=== PATIENT | male | born 1930 | race Caucasian/White ===

== ENCOUNTER → 2016-10-27 09:44 | Emergency (ER) | payer MEDICARE, BC ==
[~2016-10-27 09:44] MED LIST: Aspirin Low Dose CHEW TAB* 81 MG PO ONE; EPINEPHrine AMP 1 MG/ML ONE; EPINEPHrine SYR 0.1 MG/ML* (1:10,000) SYRINGE ONE; NS 0.9% 1000 ML* 1,000 ML IV ONE
[2016-10-27 10:01] VITALS: BP 0/0
[2016-10-27 10:27] LABS: Hematocrit 47 % (42-52); Hemoglobin 14.3 g/dl (14.0-18.0); Mean Corpuscular HGB Conc 31 g/dl (31-36); Mean Corpuscular Hemoglobin 32 pg (27-31); Mean Corpuscular Volume 104 fL (80-94); Mean Platelet Volume 8 um3 (7.4-10.4); Red Blood Count 4.52 10^6/ul (4.0-5.4); Red Cell Distribution Width 15 % (10.5-15); White Blood Count 14.2 10^3/ul (3.5-10.8)
[2016-10-27 10:36] LABS: Add Diff/Slide Review? Slide Review Added; Comments Flag Yes
[2016-10-27 10:39] LABS: Albumin 3.6 g/dL (3.2-5.2); BUN/Creatinine Ratio 9.3 (8-20); Calcium 8.7 mg/dL (8.6-10.3); EGFR African American 48.8 (>60); Globulin 2.9 g/dL (2-4); Magnesium 2.6 mg/dL (1.9-2.7); Total Bilirubin 0.5 mg/dL (0.2-1.0); Total Protein 6.5 g/dL (6.4-8.9)
[2016-10-27 10:53] LABS: Troponin I 0.1 ng/mL (<0.04)
[2016-10-27 10:55] LABS: Macrocytosis 1+
[2016-10-27 11:50] LABS: T4 5.34 mcg/mL (6.09-12.23)
[2016-10-27 11:51] LABS: TSH (Thyroid Stimulating Horm) 8.8 mcIU/mL (0.34-5.60)
--- NOTE | 2016-10-27 16:04 | ED ---
Leobardo Tang Billy, scribed for Johnathan Bonilla MD on 10/27/16 at 1027 . Cardiac Resuscitation - HPI Summary HPI Summary: This patient is a 86 year-old male BIBA to [facility] for evaluation of shortness of breath and general weakness. He was disoriented, pale, and diaphoretic by the time EMS arrived on scene. They state that his heart rate was initially in the 50s en route. However, he then suddenly became unresponsive, apnic, and asystolic on the way here. CPR was started by EMS. 1x EpiPen given to the patient at 0942 by EMS prior to arrival. - History of Current Complaint Chief Complaint: EDCardiacArrest Stated Complaint: ABC ALERT Time Seen by Provider: 10/27/16 09:44 Hx Obtained From: EMS Hx From Patient Unobtainable Due To: Extremis Onset/Duration: Minutes/Hours: Arrest Witnessed: Yes - Past Medical History Past Medical History: Other: - Per medical records, the patient has a history of dementia, hearing loss, hepatitis, high cholesterol, cataract extraction to the right eye 10/29/07, macular pucker. - Family History Family History: Other: - Per medical records: mother at age 97 heart failure, father age 77 heart failure. - Social History Social History: Unobtainable Due to Extremis - Review of Systems Review of Systems: Unobtainable Due to Extremis Physical Examination - Physical Examination Completion Of Physical Exam Limited Due To: Extremis Physical Exam Additional Comments: The patient was unresponsive, being bagged. The patient is pulseless on examination. Dry oral mucosa. Pupils non-reactive to light. Lung sounds were present only when being bagged. The head is normocephalic without any signs of trauma. Abdomen is soft with no bowel sounds. Extremities show no edema. The patient was unresponsive, GCS = 3. Diagnostics - Vital Signs Vital Signs Temp Pulse Resp BP Pulse Ox 10/27/16 09:58 97 F 0 0 0/0 0 - Laboratory Lab Results: Lab Results 10/27/16 10/27/16 10/27/16 Range/Units 10:00 10:00 10:00 WBC 14.2 H (3.5-10.8) 10^3/ul RBC 4.52 (4.0-5.4) 10^6/ul Hgb 14.3 (14.0-18.0) g/dl Hct 47 (42-52) % MCV 104 H (80-94) fL MCH 32 H (27-31) pg MCHC 31 (31-36) g/dl RDW 15 (10.5-15) % Plt Count 138 L (150-450) 10^3/ul MPV 8 (7.4-10.4) um3 Neut % (Auto) 50.4 (38-83) % Lymph % (Auto) 37.1 (25-47) % Dewitt % (Auto) 10.3 H (1-9) % Eos % (Auto) 1.7 (0-6) % Baso % (Auto) 0.5 (0-2) % Absolute Neuts (auto) 7.1 (1.5-7.7) 10^3/ul Absolute Lymphs (auto) 5.3 H (1.0-4.8) 10^3/ul Absolute Monos (auto) 1.5 H (0-0.8) 10^3/ul Absolute Eos (auto) 0.2 (0-0.6) 10^3/ul Absolute Basos (auto) 0.1 (0-0.2) 10^3/ul Absolute Nucleated RBC 0.06 10^3/ul Nucleated RBC % 0.5 Normal RBC Morphology Not Reportable Macrocytosis 1+ INR (Anticoag Therapy) 1.03 (0.89-1.11) Sodium 139 (133-145) mmol/L Potassium 4.0 (3.5-5.0) mmol/L Chloride 104 (101-111) mmol/L Carbon Dioxide 15 L (22-32) mmol/L Anion Gap 20 H (2-11) mmol/L BUN 16 (6-24) mg/dL Creatinine 1.72 H (0.67-1.17) mg/dL Est GFR ( Amer) 48.8 (>60) Est GFR (Non-Af Amer) 38.0 (>60) BUN/Creatinine Ratio 9.3 (8-20) Glucose 478 H (70-100) mg/dL Lactic Acid (0.5-2.0) mmol/L Calcium 8.7 (8.6-10.3) mg/dL Magnesium 2.6 (1.9-2.7) mg/dL Total Bilirubin 0.50 (0.2-1.0) mg/dL AST 49 H (13-39) U/L ALT 36 (7-52) U/L Alkaline Phosphatase 104 (34-104) U/L Total Creatine Kinase 76 (10-223) U/L CK-MB (CK-2) 2.7 (0.6-6.3) ng/mL Troponin I 0.10 H* (<0.04) ng/mL B-Natriuretic Peptide ( - 100) pg/mL Total Protein 6.5 (6.4-8.9) g/dL Albumin 3.6 (3.2-5.2) g/dL Globulin 2.9 (2-4) g/dL Albumin/Globulin Ratio 1.2 (1-3) TSH 8.80 H (0.34-5.60) mcIU/mL Thyroxine (T4) 5.34 L (6.09-12.23) mcg/mL 10/27/16 10/27/16 Range/Units 10:00 10:00 WBC (3.5-10.8) 10^3/ul RBC (4.0-5.4) 10^6/ul Hgb (14.0-18.0) g/dl Hct (42-52) % MCV (80-94) fL MCH (27-31) pg MCHC (31-36) g/dl RDW (10.5-15) % Plt Count (150-450) 10^3/ul MPV (7.4-10.4) um3 Neut % (Auto) (38-83) % Lymph % (Auto) (25-47) % Dewitt % (Auto) (1-9) % Eos % (Auto) (0-6) % Baso % (Auto) (0-2) % Absolute Neuts (auto) (1.5-7.7) 10^3/ul Absolute Lymphs (auto) (1.0-4.8) 10^3/ul Absolute Monos (auto) (0-0.8) 10^3/ul Absolute Eos (auto) (0-0.6) 10^3/ul Absolute Basos (auto) (0-0.2) 10^3/ul Absolute Nucleated RBC 10^3/ul Nucleated RBC % Normal RBC Morphology Macrocytosis INR (Anticoag Therapy) (0.89-1.11) Sodium (133-145) mmol/L Potassium (3.5-5.0) mmol/L Chloride (101-111) mmol/L Carbon Dioxide (22-32) mmol/L Anion Gap (2-11) mmol/L BUN (6-24) mg/dL Creatinine (0.67-1.17) mg/dL Est GFR ( Amer) (>60) Est GFR (Non-Af Amer) (>60) BUN/Creatinine Ratio (8-20) Glucose (70-100) mg/dL Lactic Acid 12.9 H* (0.5-2.0) mmol/L Calcium (8.6-10.3) mg/dL Magnesium (1.9-2.7) mg/dL Total Bilirubin (0.2-1.0) mg/dL AST (13-39) U/L ALT (7-52) U/L Alkaline Phosphatase (34-104) U/L Total Creatine Kinase (10-223) U/L CK-MB (CK-2) (0.6-6.3) ng/mL Troponin I (<0.04) ng/mL B-Natriuretic Peptide 253 H ( - 100) pg/mL Total Protein (6.4-8.9) g/dL Albumin (3.2-5.2) g/dL Globulin (2-4) g/dL Albumin/Globulin Ratio (1-3) TSH (0.34-5.60) mcIU/mL Thyroxine (T4) (6.09-12.23) mcg/mL Result Diagrams: 10/27/16 10:00 10/27/16 10:00 Lab Statement: Any lab studies that have been ordered have been reviewed, and results considered in the medical decision making process. - EKG 0955 EKG Interpretation: sinus tachycardia 113 bpm, ST elevation in II V2 V3 EKG Comparison: Other - Significant changes compared to 05/22/11 Cardiac Resus. Course/Dx - Course Course Of Treatment: Endotracheal Intubation Procedure Note. Procedure - Endotracheal Intubation. Permit was implied secondary to emergent situation. An LMA and bougie were placed within arm's reach. A Glidescope was inserted into the oropharynx at which time the vocal cords were visualized. A 7.5 [place]alan endotracheal tube was inserted and visualized going through the vocal cords. The stylette was removed. Colorimetric change was visualized on the CO2 meter. Breath sounds were heard in both lung miller equally. The endotracheal tube was placed at 23 cm, measured at the teeth. Portable chest x-ray ordered for confirmation of tube level. Post intubation sedation ordered. Intubation was made at the first attempt. No complications were encountered. Assessment/Plan: This patient is a 86 year-old male BIBA to [facility] for evaluation of shortness of breath and general weakness. He was disoriented, pale , and diaphoretic by the time EMS arrived on scene. They state that his heart rate was initially in the 50s en route. However, he suddenly became unresponsive , apnic, and asystolic on the way here. CPR was started by EMS. 1x EpiPen given to the patient at 0942 by EMS prior to arrival. In the ED course, initially we obtained IV access and ran fluids. We continued CPR. We gave 3x rounds of epineprhine. We intubated the patient (see intubation note). After the 3 rounds of epinephrine, the patient regained pulses. We did an EKG which showed ST elevations in II, V2, and V3, showing significant changes compared to a prior EKG on record done on 05/22/11. We continued with fluids. Dr. Strong was at bedside and took over the care of the patient. He agreed with the course of treatment up to this point. The patient is critical at this time, and was admitted to the ICU under Dr. Strong's services. I later discussed the case with Dr. Myles, the medical billing instructor, who released the patient from his jurisdiction. - Diagnoses Provider Diagnoses: Cardiorespiratory arrest - Provider Notifications Discussed Care Of Patient With: Dr. Strong (head control clerk) at 0945: called to the ED, accepts admission. Dr. Strong (head control clerk) at 1028: resuscitation was unsuccessful, time of 1023. He discussed the case with the patient's family. Dr. Myles (medical billing instructor) at 1114: released the patient from his jurisdiction. Dr. Sebastian (PCP) at 1128: patient disposition notified. - Critical Care Time Critical Care Time: 30-74 min Discharge - Discharge Plan Condition: Disposition: Referrals: Edouard Ritchie MD [Primary Care Provider] - The documentation as recorded by the robinsonibLeobardo dalton Billy accurately reflects the service I personally performed and the decisions made by me, Johnathan Bonilla MD.
== END | disposition expired ==
LOC: ED 09:44 → MERGE 09:44
DX: I46.9 Cardiac arrest, cause unspecified (principal); R06.02 Shortness of breath; R53.1 Weakness
CPT/HCPCS: 36415; 80053; 82550; 82553; 83605; 83735; 83880; 84436; 84443; 84484; 85025; 85610; 92950; 94002; 99284; J0171